=== PATIENT | female | born 1965 | race Two or more races ===

== ENCOUNTER 2024-07-13 14:36 | Outpatient (RCR) | payer MEDICAID, SELFPAY ==
--- NOTE | 2024-07-13 16:01 | CTCCONSULT_ITS ---
[facility] [address] [place], [place] [address] Consultation Note Date: 07/13/2024 MR#: [id number] Name: KYM PEÑALOZA : 1965 Dx: C79.31 Secondary malignant neoplasm of brain. Referring physician. Srini Bateman MD Reason for consultation. Suspected brain mets. 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 Underwent Taxol carboplatin x 3 between 09/02/2022 through 10/30/2022 along with pelvis radiation. Brachytherapy also performed in 2022. Underwent 3 additional cycles of Taxol carboplatin and currently getting Xgeva Keytruda Rodney vima under Dr. Bateman's direction. Patient was recently seen at [facility] for confusion and seizures and MRI with and without contrast 06/28/2024 revealed 5 x 4 mm oval enhancing lesion of the post central gyrus on the right 6 x 5 mm enhancing lesion in the medial left frontal lo be cortex likely to represent mets. CT chest abdomen pelvis 06/28/2024 revealed several left apical n odules which are larger and new 2 similar subcentimeter adrenal nodules larger retroperitoneal lymph nodes and new and similar osseous sclerotic lesions. Patient has been getting Xgeva. According to r adiologist consistent with at least pulmonary and osseous mets. Past Medical History: History of Graves' disease suspected bone mets. Meds. Carisoprodol pantoprazole levothyroxine ibuprofen melatonin ondansetron Acyclovir lenvatinib Allergies: Tylenol #3 hydrocodone Social History: Patient both [place] extraction lives in [place] denies smoking drinking uses occas ional marijuana Family history. 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 2. Suspected bone mets lung mets and now with brain mets. 3. Will review the MRI of the brain recently performed at [facility] and schedule her for st ereotactic radiosurgery since there are seemingly just 2 tiny lesions and she is still in very good clinical shape including her neurological condition. 5. Generally about 5000 cGy over 5 treatment days given over 2 weeks period for typical stereotactic radiosurgery for but this will be determined by the treatment planning that we will work on soon. 6. Thank you very much for allowing me to evaluate and manage this patient. Cc: MD Goldy Handley MD Electronically signed by: Jeremy Ward MD, DABR 07/13/2024 3:59 PM
--- NOTE | 2024-07-13 16:06 | CTCTXPLN_ITS ---
[facility] [place] [address] [place], [place] [address] Physician Clinical Treatment Planning Note Date of Service: 07/13/2024 Name: KYM PADILLAKENNY BhattB.: 1965 The patient has agreed to proceed with Radiation therapy. Tests and supporting medical records were interpreted to assist in defining the tumor location and extent of disease. Further imaging will be necessary to contour and delineate the volume to which the XRT will be provided. A. Treatment Intent: Palliative B. Modality: 6 MV C. Requested Technique: SRS D. Treatment Site: Brain E. Critical structures to be contoured on plan: F. In order to accomplish this plan, I am ordering/Prescribing the followin. Simulations (s) will be performed to accomplish a reproducible treatment position, to determine op timal treatment portals/beam arrangements, to design beam modifying devices and verify treatment port als on patient prior to the commencement of Radiation Therapy. Brain 2. Devices; for immobilization and beam shaping: Aquaplast 3. CT Guidance for placement of XRT landers Scan area: 4. Portal images Frequency: 5. Invivo transit dose measurement once per week on all VMAT patients. 6. Special Physics Consult Requested for: SRS 7. Other requests: Special procedure for SRS G. . Dose Objectives: Palliative Electronically signed by: Jeremy Ward M.D. 07/13/2024 4:04 PM
--- NOTE | 2024-07-13 16:16 | CTCTXPLNST_ITS ---
Radiation Oncology Treatment Planning Sheet Name: KYM PEÑALOZA MR#: [id number] : 1965 Dx: C79.31 Secondary malignant neoplasm of brain Date of Service: 07/13/2024 Account #: ?? Pt Treatment Intent: curative palliative other: Stage: Procedure CPT # Ordered Spec. Procedure 69855 SRS 1 Redd Complex (set-up) 05871 brain 1 Redd Simple 48405 IMRT Plan 67351 2 MLC Devices VMAT 30437 12 Redd 3 D 14431 TRTMT dev Complex 43406 aquaplast 1 TRTMT dev simple 35021 Basic Bossman 09925 14 Special Dosimetry 40351 Spec Physics 95136 Port Films 56755 SRS Cranial/1FX 54513 2 sites 5000 each 5 SBR 5 FX or Less /ex: 5 = 5 fx 75387 IMRT Simple 28784 IMRT Complex 54941 IGRT 86969 5 Rad del com 6-10 53897 5 Rad del com 11-19 44904 Cont Med Physics 70671 3 Treatment Planning 42871 2 Rad del com 20 mev 60457 Rad del inter 6-10 91914 Rad del inter 11- 59220 Rad del simple 6-10 15590 Rad del simple 11-19 60266 Special Port Plan 74119 TRTMT dev inter 16146 Isodose Complex 30006 Isodose simple 15634 Resp Motion Mgmt Simulation 00072 Placement of Fiducial Markers 24548 Electronically Signed By: Jeremy Ward MD, DABR 07/13/2024 4:14 PM
== END 2024-07-26 23:59 | disposition home or self-care (01) ==
LOC: SCTC 14:36
PROVIDERS: PCP Internal Medicine Hospice and Palliative Medicine; Referring Provider Internal Medicine Hematology & Oncology; Visit Provider Radiology Therapeutic Radiology
DX: C54.1 Malignant neoplasm of endometrium (principal); Z90.710 Acquired absence of both cervix and uterus; Z90.722 Acquired absence of ovaries, bilateral; G93.89 Other specified disorders of brain; E27.8 Other specified disorders of adrenal gland; M89.9 Disorder of bone, unspecified; R91.8 Other nonspecific abnormal finding of lung field
CPT/HCPCS: 99213; G0463

== ENCOUNTER 2024-08-03 08:44 | Outpatient (RCR) | payer MEDICAID, SELFPAY ==
--- NOTE | 2024-08-03 14:28 | CTCSNOTE_ITS ---
[facility] [address] [place], [place] [address] CT Simulation Note Date: 08/03/2024 MR# [id number] Name: KYM PEÑALOZA : 1965 (A) DIAGNOSIS: C79.31 Secondary malignant neoplasm of brain (B) Patient was placed in supine position and used aquaplast for immobilization purposes. (C) CT slices included brain (D) SRS Will be needed for maximum sparing of adjacent normal critical structures. (E) Patient tolerated the simulation well and left the room in good condition. Electronically signed by: Jeremy Ward MD, DABR 08/03/2024 2:25 PM
== END 2024-08-26 23:59 | disposition home or self-care (01) ==
LOC: SCTC 08:44
PROVIDERS: PCP Internal Medicine Hospice and Palliative Medicine; Referring Provider Internal Medicine Hospice and Palliative Medicine; Visit Provider Radiology Therapeutic Radiology
DX: C79.31 Secondary malignant neoplasm of brain (principal)
CPT/HCPCS: 77014; 77290; 77300; 77301; 77334; 77338

== ENCOUNTER → 2024-08-19 | Outpatient (CLI) | payer MEDICAID, SELFPAY ==
--- NOTE | 2024-08-19 14:15 | XR_ITS ---
Examination: MRI brain with intravenous contrast TECHNIQUE: Multiple axial brain MRI images post intravenous administration [address] brain study June 28, 2024 5 mm enhancing lesion right posterior central gyrus, 6 mm enhancing lesion medial left frontal lobe Exam date and time: August 19, 2024 1455 hours FINDINGS: Ventricles are not enlarged Area in the right frontal cranial vault 13 mm axial image 110 Well-defined cerebral enhancing lesions are not depicted on this scan No mass effect upon the ventricular system No effacement cortical sulcal markings IMPRESSION: 13 mm enhancing lesion in the right cranial frontal vault
== END | disposition home or self-care (01) ==
PROVIDERS: Referring Provider Radiology Therapeutic Radiology; Visit Provider Radiology Therapeutic Radiology
DX: C71.9 Malignant neoplasm of brain, unspecified (principal); G93.89 Other specified disorders of brain; C79.31 Secondary malignant neoplasm of brain
CPT/HCPCS: 70552; A9579

== ENCOUNTER 2024-09-13 13:57 | Outpatient (RCR) | payer MEDICAID, SELFPAY | END 2024-09-23 23:59 | disposition home or self-care (01) | LOC: SCTC 13:57 | PROVIDERS: Referring Provider Radiology Therapeutic Radiology; Visit Provider Radiology Therapeutic Radiology | DX: Z51.0 Encounter for antineoplastic radiation therapy (principal); C79.31 Secondary malignant neoplasm of brain; C54.1 Malignant neoplasm of endometrium; Z90.710 Acquired absence of both cervix and uterus; Z90.722 Acquired absence of ovaries, bilateral | CPT/HCPCS: 77336; 77373 ==

== ENCOUNTER 2024-10-11 14:14 | Outpatient (RCR) | payer MEDICAID, SELFPAY ==
--- NOTE | 2024-10-11 17:09 | CTCTSUMM_ITS ---
[facility] [address] [place], [place] [address] Treatment Summary Date: 10/11/2024 MR#: [id number] Name: KYM PEÑALOZA : 1965 Dx: C79.31 Referring Physician: Srini Bateman MD (A) Diagnosis: [ICD10] C79.31 Secondary malignant neoplasm of brain (B) Aim of Treatment: ??Palliative (C) Concomitant Chemotherapy: No (D) Radiation Dates: 08/30/2024 09/06/2019 11/25/1824 Treatment Prescription brain SBRT_4 Arcs 6 MV PHOT 3,600 cGy 3 1,200 cGy Approved (E) All landers were treated using customized MLC Blocks (F) Finding at Discharge: Patient tolerated treatment well and was appearing well in first follow-up after SBRT to the frontal brain. Will check MRI within the next 2 months. (G) Discharge Instructions and F/U Appt was given: The patient was also advised to continue follow-up with Dr. Bateman and primary care physician: Srini Bateman MD Electronically signed by: Jeremy Ward MD, DABR 10/11/2024 5:07 PM
== END 2024-10-24 23:59 | disposition home or self-care (01) ==
LOC: SCTC 14:14
PROVIDERS: Referring Provider Radiology Therapeutic Radiology; Visit Provider Radiology Therapeutic Radiology
DX: C79.31 Secondary malignant neoplasm of brain (principal); C54.1 Malignant neoplasm of endometrium
CPT/HCPCS: 99212; G0463

== ENCOUNTER → 2024-11-22 | Outpatient (CLI) | payer MEDICAID, SELFPAY ==
--- NOTE | 2024-11-22 16:45 | XR_ITS ---
Examination: MRI brain without intravenous contrast. Date and time of exam: November 22, 2024 at 1750 hours Technique: Multiple axial and sagittal images of the brain obtained. Siemens high-resolution 1.5 Shamika short bore scanners utilized. Sagittal sections, T1-weighted, TR 500, TE 14, are performed. Axial sections proton-density and T2-weighted have been obtained. Inversion recovery axial images, TR 9, 260, TE 111, TI 2500. Diffusion weighted images, axial sections, TR 4800, TE 128, B value 1000 Axial sections, ADC map, TR 4800, TE 128 Findings: Enlargement of the sella turcica is not present. The optic chiasm and infundibular are not remarkable. Prepontine and interpeduncular cisterns are not enlarged. There is no localized enlargement of the medulla or uriel. Fourth ventricle and cerebellar tonsils appear normal in position. No subacute area of hemorrhage density is seen. Mass in the cerebellopontine angle region is not evident. Globes symmetrical. Orbital musculature including medial lateral rectus muscles do not exhibit abnormality. Diffusion-weighted images demonstrate several foci restricted diffusion left cerebellar vermis image 8, left occipital lobe image 11) thalamus image 12 but no foci of restricted diffusion. Increased white matter signal multiple punctate foci of increased signal in the white matter Right frontal hyperintense focus 16 mm compared to 13 mm on brain MRI May 19, 2025 Mass effect upon the ventricular system is not identified. Impression: Multiple punctate foci of increased signal in the white matter on this noncontrast study as well as 16 mm lesion in the right frontal cranial vault Recommend this patient return for postcontrast images to compare with the outside MRI brain with contrast June 28, 2024
== END | disposition home or self-care (01) ==
LOC: SMRI 16:41
PROVIDERS: PCP Internal Medicine Hospice and Palliative Medicine; Referring Provider Radiology Therapeutic Radiology; Visit Provider Radiology Therapeutic Radiology
DX: G93.89 Other specified disorders of brain (principal); C79.31 Secondary malignant neoplasm of brain
CPT/HCPCS: 70551

== ENCOUNTER 2024-12-08 13:57 | Outpatient (RCR) | payer MEDICAID, SELFPAY ==
--- NOTE | 2024-12-08 14:43 | CTCFLWUP_ITS ---
[facility] [address] [place], [place] [address] FOLLOW-UP NOTE Date: 12/08/2024 MR#: [id number] Name: KYM PEÑALOZA : 1965 Dx: C79.31 Secondary malignant neoplasm of brain Identification. Patient history of stage III endometrial CA status post IMELDA/BSO 07/18/2022. Patient was suspected to have brain mets and was referred for SBRT. The planning brain MRI performed following the usual protocol revealed 13 mm enhancing lesion in the right cranial frontal vault. Patient received 3 fractions of 1200 CgY to the frontal region. 3600 cGy total. This was completed 09/13/2024. Patient tolerated well. Posttreatment MRI was subtherapeutic as IV contrast could not be given due to lack of available labs in a timely way. It was described to be 16 mm in the right frontal area. When seen for first follow-up patient appeared well was receiving chemo and noticed her lower extremity edema was noticeable. Told patient to check with Dr. Bateman and she could be referred back as needed. Electronically signed by: Jeremy Ward M.D. 12/08/2024 2:41 PM
== END 2024-12-24 23:59 | disposition home or self-care (01) ==
LOC: SCTC 13:57
PROVIDERS: PCP Internal Medicine Hospice and Palliative Medicine; Referring Provider Internal Medicine Hospice and Palliative Medicine; Visit Provider Radiology Therapeutic Radiology
DX: C79.31 Secondary malignant neoplasm of brain (principal); Z85.42 Personal history of malignant neoplasm of other parts of uterus
CPT/HCPCS: 99213; G0463